=== PATIENT | female | born 1970 | race Caucasian/White ===

== ENCOUNTER 2017-10-11 02:15 | Emergency (ER) | payer SELFPAY ==
[2017-10-11 02:24] VITALS: TEMP 97.8
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
[2017-10-11 06:29] VITALS: BP 123/78; PULSE 98; RESP 20
[2017-10-11 06:43] VITALS: O2SAT 98
== END 2017-10-11 06:25 | disposition home or self-care (01) ==
LOC: C.ER 02:15
DX: S00.83XA Contusion of other part of head, initial encounter (principal); Y04.0XXA Assault by unarmed brawl or fight, initial encounter; E78.00 Pure hypercholesterolemia, unspecified